=== PATIENT | male | born 1990 | race Two or more races ===

== ENCOUNTER 2024-10-23 19:30 | Emergency (ER) | payer MEDICAID ==
[~2024-10-23] VITALS: Ht 160 cm; Wt 72.6 kg
[2024-10-23 19:49] VITALS: BP 129/80; TEMP 98
[2024-10-23] MEDS: BACI/NEOM/POLY B OINT PKT 1 UDPKT PACKET TP ONE (20:00)
[2024-10-23] MEDS: LET SOLN TOPICAL 8 ML UDC TP ONE (20:00)
[2024-10-23] MEDS: TDAP [DIPH/PERTUSSIS/TET] 0.5 ML VIAL IM ONE (20:19)
[2024-10-23] MEDS ORDERED: BACI/NEOM/POLY B OINT PKT 1 UDPKT PACKET ONE (20:23)
[2024-10-23] MEDS ORDERED: LET SOLN TOPICAL 8 ML UDC TP ONE (20:24)
[2024-10-23] MEDS ORDERED: CEPH-570 PO (20:34)
[2024-10-23 20:50] VITALS: O2SAT 98
== END 2024-10-23 21:10 | disposition home or self-care (01) ==
LOC: ER 19:36
DX: T23.231A Burn of second degree of multiple right fingers (nail), not including thumb, initial encounter (principal); X08.8XXA Exposure to other specified smoke, fire and flames, initial encounter; Y93.89 Activity, other specified; Y92.89 Other specified places as the place of occurrence of the external cause; Y99.8 Other external cause status